=== PATIENT | male | born 1995 | race Caucasian/White ===

== ENCOUNTER 2024-01-31 13:47 | Emergency (ER) | payer SELFPAY ==
[2024-01-31 14:22] LABS: #Basophils 0.1 thou/uL (0.0-0.2); #Eosinophils 0.1 thou/uL (0.0-0.7); #Lymphocytes 2.1 thou/uL (1.20-3.40); #Monocytes 0.5 thou/uL (0.11-0.59); #Neutrophils 3.9 thou/uL (1.40-6.50); %Basophils 0.9 % (0.0-1.0); %Eosinophils 2.3 % (0.0-10.0); %Lymphocytes 31.7 % (21.0-51.0); %Monocytes 6.8 % (0.0-10.0); %Neutrophils 58.3 % (42.0-75.0); Hemoglobin 15.2 g/dL (14.0-18.0); Mean Corpuscular HGB CONC 33.1 g/dL (32.0-36.0); Mean Corpuscular Hemoglobin 28.7 pg (27.0-31.0); Mean Corpuscular Volume 86.8 fl (78.0-98.0); Mean Platelet Volume 5.9 fL (7.4-10.4); Platelet Count 201 10x3/uL (130-400); White Blood Cell (WBC) Count 6.6 10x3/uL (4.8-10.8)
[2024-01-31] MEDS ORDERED: Iopamidol 370 76% 100 ML VIAL ONE (14:25)
[2024-01-31 14:36] LABS: ALT (SGPT) 23 U/L (8-55); AST (SGOT) 17 U/L (5-34); Alkaline Phosphatase 78 U/L (40-110); Anion Gap 12 mmol/L (10-20); BUN (Urea Nitrogen) 15 mg/dL (8.9-20.6); Calc. Creatinine Clearance 0 mL/min (70-130); Calcium 9.5 mg/dL (7.8-10.44); Carbon Dioxide 26 mmol/L (22-29); Chloride 107 mmol/L (98-107); Estimated GFR 91; Globulin 2.8 g/dL (2.4-3.5); Glucose 88 mg/dL (70-105); Potassium 3.9 mmol/L (3.5-5.1); Protein, Total 6.8 g/dL (6.0-8.3); Sodium 141 mmol/L (136-145)
[2024-01-31] MEDS ORDERED: Piperacillin/Tazobactam 4.5 GM VIAL ONE (15:39)
[2024-01-31] MEDS ORDERED: Sodium Chloride 0.9% 100 ML ONE (15:40)
[2024-01-31] MEDS ORDERED: Ketorolac Tromethamine 30 MG (1 mL) VIAL ONE (16:53)
[2024-01-31 17:47] LABS: Bilirubin Negative (Negative); Blood, Urine Negative (Negative); Clarity Clear (Clear); Glucose, Urine (Dipstick) Negative (Negative); Ketone, Urine Negative (Negative); Leukocyte Negative (Negative); Nitrite Negative (Negative); Protein, Urine (Dipstick) Negative (Neg-Trace); Specific Gravity, Urine 1.015 (1.005-1.030); Urobilinogen 0.2 mg/dL (Less than 2); pH, Urine 7.5 (5.0-9.0)
[2024-01-31 17:53] LABS: Bacteria/HPF None Seen HPF (None Seen); CAUTI Indications for Culture Pelvic or flank pain; RBC/HPF None Seen HPF (0-3); Squamous Epithelial 0-3 HPF (0-3); WBC/HPF None Seen HPF (0-3)
[2024-01-31 17:54] LABS: Urine Culture Reflex No No
== END 2024-01-31 17:11 | disposition home or self-care (01) ==
LOC: BURERS 13:47
DX: K63.89 Other specified diseases of intestine (principal)
CPT/HCPCS: 36415; 74177; 80053; 81001; 85025; 96365; 96375; J1885; J2543; Q9967

== ENCOUNTER 2024-02-22 14:38 | Emergency (ER) | payer OTHER, SELFPAY ==
[2024-02-22] MEDS ORDERED: Ondansetron ODT 4 MG TAB ONE (14:49)
[2024-02-22] MEDS ORDERED: Acetaminophen 500 MG TAB ONE (14:49)
== END 2024-02-22 15:38 | disposition home or self-care (01) ==
LOC: BURERS 14:38
DX: B34.9 Viral infection, unspecified (principal)
CPT/HCPCS: 87428; 99284; Q0162

== ENCOUNTER 2024-03-12 20:46 | Emergency (ER) | payer OTHER ==
[2024-03-12] MEDS ORDERED: Acetaminophen 500 MG TAB ONE (20:58)
[2024-03-12] MEDS ORDERED: Dexamethasone 10 MG/ML VIAL ONE (20:58)
[2024-03-12] MEDS ORDERED: Benzonatate 100 MG CAP ONE (20:58)
[2024-03-12] MEDS ORDERED: Dexamethasone 4 mg/ml Vial ONE (20:59)
== END 2024-03-12 21:31 | disposition home or self-care (01) ==
LOC: BURERS 20:46
DX: J11.1 Influenza due to unidentified influenza virus with other respiratory manifestations (principal)
CPT/HCPCS: 96372; 99283; J1100